=== PATIENT | male | born 1965 | race Two or more races ===

== ENCOUNTER 2019-10-18 17:04 | Emergency (ER) | payer SELFPAY ==
[~2019-10-18] VITALS: Ht 167.6 cm; Wt 65.9 kg
[2019-10-18 17:29] VITALS: BP 147/65
[2019-10-18] MEDS ORDERED: TRAM50TA PO (17:43)
[2019-10-18] MEDS ORDERED: AMOX875T PO (17:43)
--- NOTE | 2019-10-18 17:43 | PHYS DOC ---
Past Medical History Past Medical History: No Pertinent History Past Surgical History: Other Additional Past Surgical Histo: R. KNEE, L. EYE Smoking Status: Current Every Day Smoker Alcohol Use: Occasionally General Adult EDM: Chief Complaint: DENTAL PROBLEM HPI: HPI: Patient is a 54 year old male who presents to the ED today complaining of mild intermittent right upper gum dental pain that began a week ago. Patient denies any fever or trismus. He states he has an appointment with a dentist on October 26. Review of Systems: Review of Systems: Constitutional: Denies fever or chills. [] HENT: Reports right upper gum dental pain. Denies nasal congestion or sore throat. [] Musculoskeletal: Denies back pain or joint pain. [] Integument: Denies rash. [] Neurologic: Denies headache, focal weakness or sensory changes. [] Psychiatric: Denies depression or anxiety. [] Heart Score: Risk Factors: Risk Factors: DM, Current or recent (<one month) smoker, HTN, HLP, family history of CAD, obesity. Risk Scores: Score 0 - 3: 2.5% MACE over next 6 weeks - Discharge Home Score 4 - 6: 20.3% MACE over next 6 weeks - Admit for Clinical Observation Score 7 - 10: 72.7% MACE over next 6 weeks - Early Invasive Strategies Allergies: Allergies: Allergies Coded Allergies Type Severity Reaction Last Updated Verified No Known Drug Allergies 10/18/19 No Physical Exam: PE: Constitutional: Well developed, well nourished, no acute distress, non-toxic appearance. [] HENT: Normocephalic, atraumatic, bilateral external ears normal, oropharynx moist, no oral exudates, nose normal. [] Right inner upper gum along the molars with small swelling consistent of a dental abscess. No fluctuance to the area. No yellowness. Poor dental hygiene. Skin: Warm, dry, no erythema, no rash. [] Back: No tenderness, no CVA tenderness. [] Extremities: No tenderness, no cyanosis, no clubbing, ROM intact, no edema. [] Neurologic: Alert and oriented X 3, normal motor function, normal sensory function, no focal deficits noted. [] Psychologic: Affect normal, judgement normal, mood normal. [] Current Patient Data: Vital Signs: Vital Signs Date Time Temp Pulse Resp B/P (MAP) Pulse Ox O2 Delivery O2 Flow Rate FiO2 10/18/19 17:29 98.4 82 18 147/65 (92) 96 Room Air 98.4 EKG: EKG: [] Radiology/Procedures: Radiology/Procedures: [] Course & Med Decision Making: Course & Med Decision Making Pertinent Labs and Imaging studies reviewed. (See chart for details) This is a 54-year-old male patient with a dental abscess. Discharged on amoxicillin and tramadol for pain. He has an appointment with his own dentist on October 26. Vilma Disclaimer: Vilma Disclaimer: This electronic medical record was generated, in whole or in part, using a voice recognition dictation system. Departure Departure Impression: Primary Impression: Abscess, dental Additional Impression: Dental caries Disposition: HOME, SELF-CARE Condition: STABLE Patient Instructions: Dental Abscess Additional Instructions: You were evaluated in the emergency room for dental abscess. Take the prescribed antibiotics until completed. Follow-up with your dentist as scheduled on October 26 Scripts Tramadol Hcl (TRAMADOL HCL) 50 Mg Tablet 50 MG PO Q6-8HRS PRN for PAIN, #20 TAB 0 Refills Prov: JULIETH VILLAR APRN 10/18/19 Amoxicillin (AMOXICILLIN) 875 Mg Tablet 1 TAB PO BID, #20 TAB Prov: JULIETH VILLAR APRN 10/18/19 JULIETH VILLAR APRN October 18, 2019 17:43
== END 2019-10-18 17:54 | disposition home or self-care (01) ==
LOC: ER 17:04
DX: K04.7 Periapical abscess without sinus (principal); K02.9 Dental caries, unspecified; F17.200 Nicotine dependence, unspecified, uncomplicated
CPT/HCPCS: 99283